=== PATIENT | female | born 1970 | race Caucasian/White ===

== ENCOUNTER 2023-01-14 12:54 | Emergency (ER) | payer SELFPAY ==
[~2023-01-14] VITALS: Ht 170.2 cm; Wt 80.0 kg
[2023-01-14] MEDS: SODIUM CHLORIDE 0.9% 1,000 ML IV ONE ×2 (13:45→15:30)
[2023-01-14 14:41] VITALS: BP 134/88
[2023-01-14 15:44] LABS: BASOPHILS % 0.2 % (0.0-2.0); EOSINOPHILS % 0.5 % (0.0-5.0); HEMATOCRIT. 45.8 % (36.0-48.0); HEMOGLOBIN. 15.5 g/dL (12.0-16.0); LYMPHOCYTES % 32.8 % (20.0-50.0); MEAN CORPUSCULAR HEMOGLOBIN 31.1 pg (28.0-32.0); MEAN CORPUSCULAR VOLUME 91.7 fL (81.0-99.0); MEAN PLATELET VOLUME 7.3 fl (7.4-10.4); MONOCYTES % 3.2 % (2.0-8.0); NEUTROPHILS % 63.3 % (40.0-76.0); PLATELET 253 x1000/uL (130-400); RED BLOOD CELL COUNT 4.99 mill/uL (4.2-5.4); RED CELL DISTRIBUTION WIDTH 12.9 % (11.6-14.6)
[2023-01-14 15:51] LABS: CHLORIDE 110 mEq/L (98-107)
[2023-01-14 16:10] LABS: ETHANOL BLOOD 307 mg/dL
== END 2023-01-14 20:04 | disposition home or self-care (01) ==
LOC: ER 12:54
DX: F10.129 Alcohol abuse with intoxication, unspecified (principal); Y90.8 Blood alcohol level of 240 mg/100 ml or more; R41.82 Altered mental status, unspecified
CPT/HCPCS: 36415; 70450; 80053; 80320; 85025; 96360; 99284; J7030; Z7610; G0480